=== PATIENT | male | born 1985 | race Two or more races ===

== ENCOUNTER 2021-02-15 10:49 | Emergency (ER) | payer OTHER ==
[2021-02-15] MEDS ORDERED: MOTRIN600 MG PO (16:23)
== END 2021-02-15 16:35 | disposition home or self-care (01) ==
LOC: FER 10:49
DX: S46.911A Strain of unspecified muscle, fascia and tendon at shoulder and upper arm level, right arm, initial encounter (principal); X58.XXXA Exposure to other specified factors, initial encounter; Y92.69 Other specified industrial and construction area as the place of occurrence of the external cause; Y99.0 Civilian activity done for income or pay
CPT/HCPCS: 73030; J1885